=== PATIENT | male | born 1970 | race Caucasian/White ===

== ENCOUNTER → 2021-05-27 15:50 | Outpatient (CLI) | payer OTHER, SELFPAY ==
--- NOTE | ~2021-05-27 | XR_ITS ---
XR_CERV2-3V_CR DATE: 05/27/2021 16:16 INDICATION: Neck pain TECHNIQUE: AP, open-mouth, lateral views COMPARISON: None FINDINGS: There is minimal anterolisthesis at C6-7. No fracture or dislocation or locked facet or pre vertebral soft tissue swelling. C1 and C2 are normally aligned and the odontoid process is intact. There is mild degenerative disc disease at C5-6 and C6-7. IMPRESSION: Minimal anterolisthesis at C6-7 Mild degenerative disc disease at C5-6 and C6-7 Reviewed, dictated and finalized at [facility]. Reviewed, dictated and finalized at location B.
== END ==
PROVIDERS: PCP Family Medicine; Visit Provider Family Medicine
DX: M54.2 Cervicalgia (principal); M50.323 Other cervical disc degeneration at C6-C7 level
CPT/HCPCS: 72040

== ENCOUNTER → 2021-09-10 11:55 | Outpatient (CLI) | payer OTHER, SELFPAY ==
--- NOTE | ~2021-09-10 | XR_ITS ---
EXAMINATION: XR thoracic spine 2V DATE: 09/10/2021 14:00 INDICATION: Radiculopathy, muscle tremor TECHNIQUE: AP, lateral and lateral swimmer's views of the thoracic spine were obtained. COMPARISON: None. FINDINGS: There is no fracture, dislocation, or subluxation. The vertebral body heights are normal. T here is mild loss of intervertebral disc space height at multiple levels in the thoracic spine. The p aravertebral soft tissues are unremarkable. IMPRESSION: 1. Mild thoracic spondylosis without acute findings. Reviewed, dictated and finalized at location F. NICAL SALES CONSULTANT
--- NOTE | ~2021-09-10 | MR_ITS ---
EXAMINATION: MR brain/brain stem wo/w con DATE: 09/10/2021 13:42 INDICATION: Ataxia. Muscle tremor. TECHNIQUE: Magnetic resonance imaging (MRI) of the brain and brainstem was performed without and with 19 mL MultiHance intravenous contrast. Sequences included sagittal and axial T1-weighted FLAIR, axia l T1-weighted FSE, axial diffusion-weighted FS EPI, sagittal T2-weighted FLAIR, axial T2*-weighted GR E, axial T2-weighted FLAIR Propeller, and axial T2-weighted Propeller. Postcontrast sequences include d axial, coronal, and sagittal T1-weighted FSE. Apparent diffusion coefficient (ADC) maps were create d. COMPARISON: None. FINDINGS: There is no intracranial hemorrhage, acute infarction, or abnormal intracranial mass lesion . The ventricles are normal in size. The paranasal sinuses are clear. The orbits are normal. There is a trace left mastoid effusion. IMPRESSION: 1. Normal brain. Reviewed, dictated and finalized at location B. PTIONIST SECRETARY IMPRESSION: 1. Normal brain.
--- NOTE | ~2021-09-10 | XR_ITS ---
EXAMINATION: XR lumbar spine 2-3V DATE: 09/10/2021 14:00 INDICATION: Radiculopathy, muscle tremor TECHNIQUE: Anteroposterior and lateral views of the lumbar spine, and cone-down lateral view of the l umbosacral junction were obtained. COMPARISON: None. FINDINGS: There are 2 mm of retrolisthesis of L3 on L4. There is mild loss of vertebral body height a t L1 and L2. There is mild loss of intervertebral disc space height at L3-4. Small degenerative osteo phytes project from the anterior endplates of multiple vertebral bodies. Surgical clips in the right upper quadrant are likely from prior cholecystectomy. IMPRESSION: 1. Mild loss of vertebral body height at L1 and L2 which appears chronic. 2. Mild lumbar spondylosis. Reviewed, dictated and finalized at location F. REGISTRY
[2021-09-10 12:57] LABS: Estimated Glomerular Filt Rate > 60
== END ==
PROVIDERS: PCP Family Medicine; Visit Provider Physician Assistant
DX: R27.0 Ataxia, unspecified (principal); R25.1 Tremor, unspecified; M47.25 Other spondylosis with radiculopathy, thoracolumbar region
CPT/HCPCS: 70553; 72070; 72100; A9577

== ENCOUNTER → 2021-10-04 14:29 | Outpatient (CLI) | payer OTHER, SELFPAY ==
--- NOTE | ~2021-10-04 | MR_ITS ---
EXAMINATION: MR cervical spine wo/w con EXAM DATE: 10/04/2021 16:50 INDICATION: Myelopathy . Generalized numbness burning tingling, uncontrolled movement and lower legs progressing for 8 months. TECHNIQUE: Multi-sequential, multiplanar MR images of the cervical spine were obtained without contra st. Axial T2, axial T2 MERGE sequence. Axial T1 weighted sequence. Patient was then injected with 2 0 mL Multihance intravenous contrast and reimaged. Postcontrast axial and sagittal T1-weighted fat s aturation sequences were obtained. Sagittal T1, T2, T2 fat saturation images also obtained. There i s no prior study for comparison. FINDINGS: There is mild loss of the C5-6 disc height, with a moderate-sized disc bulge flattening th e anterior aspect of the spinal cord, with focal region of increased cord T2 signal intensity at this level, symmetrical on both sides of the spinal cord, and demonstrating some enhancement. Central can al is only mild to moderately stenotic at 7-8 mm. Probably cord compression, consider trial of steroi ds. No cord expansion to suggest underlying mass. Differential diagnosis includes acute transverse my elitis, multiple sclerosis, tumor and a follow-up MR as indicated. No other areas of abnormal enhance ment. The vertebral body and disc heights are otherwise well maintained. The vertebral bodies are aligned i n the AP dimension. Cervicomedullary junction is normal in appearance. There are no suspicious marrow signal abnormalities. Paraspinal soft tissue is unremarkable. Level by level evaluation: C2-C3: Disc does not extend beyond the endplate margin. Uncovertebral joint arthropathy: None. Facet joint arthropathy: Mild bilateral. Neural foraminal stenosis: No stenosis. Central canal stenosis: No stenosis. C3-C4: There is a minimal diffuse disc bulge. Uncovertebral joint arthropathy: Mild to moderate left, mild right. Facet joint arthropathy: Mild bilateral. Neural foraminal stenosis: Mild right. Central canal stenosis: No stenosis. C4-C5: There is a minimal diffuse disc bulge. Uncovertebral joint arthropathy: Moderate left, mild to moderate right. Facet joint arthropathy: Moderate left, mild to moderate right. Neural foraminal stenosis: Moderate left, mild to moderate right. Central canal stenosis: No stenosis. C5-C6: There is a moderate diffuse disc bulge asymmetric to the left Uncovertebral joint arthropathy: Moderate bilateral, left greater than right. Facet joint arthropathy: Mild bilateral. Neural foraminal stenosis: Severe left, moderate to severe right. Central canal stenosis: Mild to moderate. Central canal measures 7-8 mm in mid sagittal AP diameter . C6-C7: Disc does not extend beyond the endplate margin. Uncovertebral joint arthropathy: Mild bilateral. Facet joint arthropathy: Minimal bilateral. Neural foraminal stenosis: Mild right field T1. Central canal stenosis: No stenosis. C7-T1: Disc does not extend beyond the endplate margin. Uncovertebral joint arthropathy: Mild bilateral. Facet joint arthropathy: Mild bilateral. Neural foraminal stenosis: No stenosis. Central canal stenosis: No stenosis. IMPRESSION: 1. C5-6 moderate-sized disc bulge, focal increased cord T2 signal with enhancement most, likely cord compression. Differential diagnosis includes acute transverse myelitis, multiple sclerosis, tumor. C onsider steroid administration and follow-up exam with contrast. 2. Significant C5-6 neural foraminal stenosis. Reviewed, dictated and finalized at location G. NESS LAW INSTRUCTOR IMPRESSION: 1. C5-6 moderate-sized disc bulge, focal increased cord T2 signal with enhance ment most, likely cord compression. Differential diagnosis includes acute trans vers
--- NOTE | ~2021-10-04 | MR_ITS ---
EXAMINATION: MR thoracic spine wo/w con EXAM DATE: 10/04/2021 16:51 INDICATION: Myelopathy . TECHNIQUE: Multi-sequential, multiplanar MR images of the thoracic spine were obtained without contra st. Sagittal T1, T2, T2 fat saturation, axial T2 weighted images reviewed. Axial T1 weighted sequenc e. Patient was then injected with 20 mL Multihance intravenous contrast and reimaged. Postcontrast axial and sagittal T1-weighted fat saturation sequences were obtained. FINDINGS: The spinal cord signal intensity and intrinsic morphology is normal. Thoracic neural forame n and central canal widely patent. No appreciable disc disease. There are no suspicious marrow signal abnormalities. Paraspinal soft tissue is unremarkable. There are no areas of abnormal enhancement on the post contrast images. IMPRESSION: Unremarkable MR thoracic spine. Reviewed, dictated and finalized at location G. MIXER
== END ==
PROVIDERS: PCP Family Medicine
DX: G95.9 Disease of spinal cord, unspecified (principal); M50.222 Other cervical disc displacement at C5-C6 level; M48.02 Spinal stenosis, cervical region
CPT/HCPCS: 72156; 72157; A9577

== ENCOUNTER → 2022-03-20 07:48 | Outpatient (CLI) | payer OTHER, SELFPAY ==
--- NOTE | ~2022-03-20 | MR_ITS ---
EXAMINATION: MR lumbar spine wo con DATE: 03/20/2022 09:12 INDICATION: Incontinence. Low back pain. TECHNIQUE: Magnetic resonance imaging (MRI) of the lumbar spine was performed without intravenous con trast. Sequences included sagittal T2-weighted FSE, sagittal T2-weighted FS FSE, sagittal T1-weighted FSE, and axial T2-weighted FSE. COMPARISON: Lumbar spine radiographs 09/10/2021 FINDINGS: There is a 12 mm cyst in right kidney. Bone alignment is normal. There is mild chronic ante rior wedging of T11-L1 vertebral bodies. There is a Schmorl's node of superior endplate of L1. There is mildly decreased disc height at L3-L4. The distal spinal cord signal intensity is normal. The conu s medullaris is at L1. The following disc levels are specifically discussed: L1-L2: The disc does not extend beyond the endplate margin. There is mild bilateral facet joint osteo arthritis. There is no neural foraminal stenosis. There is no central canal stenosis. L2-L3: The disc is bulging. There is mild bilateral facet joint osteoarthritis. There is mild bilater al neural foraminal stenosis. There is no central canal stenosis. L3-L4: The disc is bulging. There is mild bilateral facet joint osteoarthritis. There is moderate rig ht and mild left neural foraminal stenosis. There is mild central canal stenosis. L4-L5: The disc is bulging. There is mild bilateral facet joint osteoarthritis. There is moderate rig ht and mild left neural foraminal stenosis. There is mild central canal stenosis. L5-S1: The disc does not extend beyond the endplate margin. There is moderate bilateral facet joint o steoarthritis. There is no neural foraminal stenosis. There is no central canal stenosis. IMPRESSION: 1. Moderate lumbar spondylosis. Reviewed, dictated and finalized at location A.
== END ==
PROVIDERS: PCP Family Medicine; Visit Provider Physician Assistant
DX: R32 Unspecified urinary incontinence (principal); R15.9 Full incontinence of feces; Z98.890 Other specified postprocedural states; M47.26 Other spondylosis with radiculopathy, lumbar region
CPT/HCPCS: 72148